=== PATIENT | male | born 1955 | race Hispanic/Latino ===

== ENCOUNTER 2024-02-16 11:38 | Emergency (ER) | payer OTHER ==
[~2024-02-16] VITALS: Ht 167.6 cm; Wt 64.4 kg
[2024-02-16] MEDS ORDERED: DIATR MEGLU/DIATRIZOATE SODIUM 30 ML BOTTLE ONE (13:13)
[2024-02-16 15:37] VITALS: BP 117/70; PULSE 95; RESP 19; O2SAT 100
== END 2024-02-16 16:01 ==
LOC: EDH 11:38
DX: Z46.59 Encounter for fitting and adjustment of other gastrointestinal appliance and device (principal)
CPT/HCPCS: 74018; Q9963

== ENCOUNTER 2024-02-19 15:43 | Inpatient (IN) | payer OTHER ==
[~2024-02-19] VITALS: Ht 157.5 cm; Wt 72.7 kg
[2024-02-19 19:14] LABS: BASOPHILS # (AUTO) 0.07 K/uL (0.00-0.20); BASOPHILS % (AUTO) 0.7 % (0.0-5.0); EOSINOPHILS # (AUTO) 0.19 K/uL (0.00-0.70); HEMATOCRIT 28.9 % (42-54); IMMATURE GRANULOCYTE ABSOLUTE 0.04 K/uL (0-1); LYMPHOCYTES # (AUTO) 1.9 K/uL (1.0-4.8); LYMPHOCYTES % (AUTO) 20.7 % (21.0-51.0); MEAN CORPUSCULAR HEMOGLOBIN 27.7 pg (27.0-33.0); MEAN CORPUSCULAR HGB CONC 34.3 g/dL (32.0-36.0); MONOCYTES % (AUTO) 10.9 % (3.0-13.0); NEUTROPHILS # (AUTO) 6.1 K/uL (1.8-7.7); NEUTROPHILS % (AUTO) 65.3 % (40.0-77.0); PLATELET COUNT (AUTO) 453 K/uL (130-400); RED BLOOD CELL COUNT(AUTO) 3.57 MIL/uL (4.50-6.20); RED CELL DISTRIBUTION WIDTH 18.8 % (11.0-15.5); WHITE BLOOD COUNT (AUTO) 9.4 K/uL (4.8-10.8)
[2024-02-19 19:24] LABS: CREATININE 0.6 mg/dL (0.5-1.3); POTASSIUM 4.2 mmol/L (3.5-5.1)
[2024-02-19 19:29] LABS: ALBUMIN 3.4 g/dL (3.5-5.0); BILIRUBIN,TOTAL 0.3 mg/dL (0.2-1.0); TOTAL PROTEIN, SERUM 7.5 g/dL (6.0-8.3)
[2024-02-19] MEDS: 0.9%NACL 1000ML 1,000 ML IV ONE (20:33)
[2024-02-19] MEDS ORDERED: IOHEXOL-350 75 ML VIAL IV ONE (20:50)
[2024-02-19 21:00] VITALS: PULSE 91; RESP 20; O2SAT 100
[2024-02-20] VITALS (10 sets, daily range): BP systolic 113–155; BP diastolic 54–83; PULSE 83–111; RESP 16–22; O2SAT 98–100
[2024-02-20] MEDS ORDERED: ONDANSETRON 4MG INJ IV PRN
[2024-02-20] MEDS ORDERED: ACETAMINOPHEN 325 MG TAB PO PRN
[2024-02-20] MEDS ORDERED: GLUCAGON 1MG KIT 1 MG ML IM PRN (00:30)
[2024-02-20] MEDS ORDERED: POTASSIUM CHLORIDE 20MEQ/100ML 100 ML IV PRN (00:30)
[2024-02-20] MEDS ORDERED: DEXTROSE 50%-WATER 50 ML DISP.SYRIN IV PRN (00:30)
[2024-02-20] MEDS ORDERED: AMLO-258 PO (00:45)
[2024-02-20] MEDS ORDERED: ENOX40DI9 SQ (00:46)
[2024-02-20] MEDS ORDERED: POLY17PO52 PO (00:47)
[2024-02-20] MEDS ORDERED: HYDR5POW MC (00:49)
[2024-02-20] MEDS ORDERED: METO5TAB2 PO (00:50)
[2024-02-20] MEDS ORDERED: LOSA50TA64 PO (00:50)
[2024-02-20] MEDS ORDERED: METO75TA PO (00:53)
[2024-02-20] MEDS ORDERED: MULT9LIQ PO (00:54)
[2024-02-20] MEDS ORDERED: SODI100037 PO (00:55)
[2024-02-20] MEDS: LACTATED RINGERS 1000ML 1,000 ML IV SCH (01:06)
[2024-02-20] MEDS: INSULIN HUMULIN R 100 UNIT/ML 3ML SQ SCH (05:32)
[2024-02-20 06:09] LABS: BASOPHILS # (AUTO) 0.06 K/uL (0.00-0.20); BASOPHILS % (AUTO) 0.5 % (0.0-5.0); EOSINOPHILS # (AUTO) 0.08 K/uL (0.00-0.70); EOSINOPHILS % (AUTO) 0.6 % (0.0-8.0); HEMATOCRIT 29.4 % (42-54); IMMATURE GRANULOCYTE ABSOLUTE 0.06 K/uL (0-1); LYMPHOCYTES # (AUTO) 1.7 K/uL (1.0-4.8); LYMPHOCYTES % (AUTO) 13.3 % (21.0-51.0); MEAN CORPUSCULAR HEMOGLOBIN 27.8 pg (27.0-33.0); MEAN CORPUSCULAR HGB CONC 33.7 g/dL (32.0-36.0); MEAN CORPUSCULAR VOLUME 82.6 fL (79-99); MONOCYTES # (AUTO) 1.3 K/uL (0.1-1.0); MONOCYTES % (AUTO) 9.6 % (3.0-13.0); NEUTROPHILS # (AUTO) 9.9 K/uL (1.8-7.7); NEUTROPHILS % (AUTO) 75.5 % (40.0-77.0); PLATELET COUNT (AUTO) 422 K/uL (130-400); RED BLOOD CELL COUNT(AUTO) 3.56 MIL/uL (4.50-6.20); RED CELL DISTRIBUTION WIDTH 18.5 % (11.0-15.5)
[2024-02-20 06:21] LABS: INR 1.07 (0.85-1.15); PROTHROMBIN TIME 11.5 SEC (9.6-11.6)
[2024-02-20 06:22] LABS: PARTIAL THROMBOPLASTIN TIME 29.7 SEC (26.3-35.5)
[2024-02-20 06:33] LABS: ALBUMIN 3.3 g/dL (3.5-5.0); BILIRUBIN,TOTAL 0.4 mg/dL (0.2-1.0); CREATININE 0.6 mg/dL (0.5-1.3); MAGNESIUM 1.6 mg/dL (1.80-2.40); POTASSIUM 4.1 mmol/L (3.5-5.1); TOTAL PROTEIN, SERUM 7.4 g/dL (6.0-8.3)
[2024-02-20] MEDS: FAMOTIDINE 20MG VIAL IV SCH (09:12)
[2024-02-20] MEDS ORDERED: NITROGLYCERIN 0.4 MG SL TAB SL PRN (20:30)
[2024-02-20] MEDS ORDERED: CLONIDINE HCL 0.1 MG TABLET PO PRN (20:30)
[2024-02-20] MEDS ORDERED: ACETAMINOPHEN 650 MG/20.3 ML UDCUP PEG PRN (20:30)
[2024-02-20] MEDS ORDERED: BISACODYL 10 MG SUPP.RECT RC PRN (20:30)
[2024-02-20] MEDS ORDERED: LACTULOSE 20 GM/30 ML UDCUP PO PRN (20:30)
[2024-02-20] MEDS: HYDRALAZINE HCL 10 MG TABLET NG SCH (21:00)
[2024-02-20] MEDS: NYSTATIN 15 GM POWDER TP SCH (21:00)
[2024-02-20] MEDS: MUPIROCIN OINTMENT 22 GM TUBE TP SCH (21:00)
[2024-02-20] MEDS: FAMOTIDINE 20MG TAB PO SCH (21:00)
[2024-02-20] MEDS: LOSARTAN 50 MG TABLET PO SCH (21:43)
[2024-02-20] MEDS: SODIUM CHLORIDE 1,000 MG TAB PO SCH (21:43)
[2024-02-20] MEDS: METOPROLOL TARTRATE 50 MG TAB NG SCH (21:43)
[2024-02-20] MEDS: ALBUTEROL 0.083% 2.5 MG/3 ML INH IH SCH (23:24)
[2024-02-21] VITALS (29 sets, daily range): BP systolic 50–161; BP diastolic 50–81; PULSE 63–101; RESP 15–20; O2SAT 96–100
[2024-02-21] MEDS: METOCLOPRAMIDE 10MG/10ML UDCUP NG SCH (03:29)
[2024-02-21 06:27] LABS: HEMATOCRIT 27.4 % (42-54); MEAN CORPUSCULAR HEMOGLOBIN 27.7 pg (27.0-33.0); MEAN CORPUSCULAR HGB CONC 32.5 g/dL (32.0-36.0); MEAN CORPUSCULAR VOLUME 85.4 fL (79-99); RED BLOOD CELL COUNT(AUTO) 3.21 MIL/uL (4.50-6.20); RED CELL DISTRIBUTION WIDTH 18.2 % (11.0-15.5)
[2024-02-21 06:44] LABS: CREATININE 0.6 mg/dL (0.5-1.3); MAGNESIUM 1.4 mg/dL (1.80-2.40); POTASSIUM 3.8 mmol/L (3.5-5.1)
[2024-02-21] MEDS: MAGNESIUM 2GM PREMIX 50ML 50 ML IV PRN (06:51)
[2024-02-21] MEDS: AMLODIPINE 5 MG TAB PO SCH (09:00)
[2024-02-21] MEDS: POLYETHYLENE GLYCOL 3350 17 GM POWD.PACK PO SCH (09:00)
[2024-02-21] MEDS: ENOXAPARIN SODIUM 40 MG/0.4 ML SYRINGE SQ SCH (09:00)
[2024-02-21] MEDS: BACITRACIN 1 EACH PACKET TP ONE (09:00)
[2024-02-21] MEDS: MULTIVITAMIN WITH MINERALS TABLET PO SCH (09:00)
[2024-02-21] MEDS ORDERED: PROPOFOL 10 MG/ML 20ML VIAL IV ONE (12:41)
[2024-02-21] MEDS ORDERED: LIDOCAINE PF 100MG/5ML (2%) SYRINGE 5ML ONE (12:42)
[2024-02-21] MEDS ORDERED: CEFAZOLIN SODIUM 1 GM VIAL ONE (12:44)
[2024-02-21] MEDS: LABETALOL 20MG SYG IV PRN (16:04)
[2024-02-21] MEDS: ACETAMINOPHEN 325 MG TAB PO PRN (20:28)
[2024-02-22] VITALS (13 sets, daily range): BP systolic 104–165; BP diastolic 56–97; PULSE 68–89; RESP 18–20; O2SAT 97–99
[2024-02-22] MEDS: PANTOPRAZOLE 40 MG TAB DR PO SCH (10:59)
[2024-02-23] VITALS (10 sets, daily range): BP systolic 116–157; BP diastolic 59–66; PULSE 64–85; RESP 18–20; O2SAT 96–100
[2024-02-23 05:13] LABS: HEMATOCRIT 24.9 % (42-54); MEAN CORPUSCULAR HEMOGLOBIN 27.7 pg (27.0-33.0); MEAN CORPUSCULAR HGB CONC 33.3 g/dL (32.0-36.0); RED CELL DISTRIBUTION WIDTH 17.8 % (11.0-15.5); WHITE BLOOD COUNT (AUTO) 9.3 K/uL (4.8-10.8)
[2024-02-23 05:19] LABS: CREATININE 0.6 mg/dL (0.5-1.3); MAGNESIUM 1.4 mg/dL (1.80-2.40); POTASSIUM 3.2 mmol/L (3.5-5.1)
[2024-02-23] MEDS: POTASSIUM CHLORIDE 10% ELIXIR 20 MEQ/15 ML UDCUP PO PRN (06:24)
[2024-02-23] MEDS: ZOSYN 3.375GM +NS 50ML IV SCH (15:18)
== END 2024-02-23 17:27 | DRG 919 ==
LOC: EDH 15:43 → EDHIP 23:49 → OBSVTOIN 23:49 → 3CH 02-20 00:35
PROVIDERS: ADMIT Hospitalist; ATTEND Hospitalist
PROC: 0DB68ZX Excision of Stomach, Via Natural or Artificial Opening Endoscopic, Diagnostic (ICD-10-PCS; principal; 2024-02-21)
PROC: 0D20XUZ Change Feeding Device in Upper Intestinal Tract, External Approach (ICD-10-PCS; 2024-02-21)
DX: T85.528A Displacement of other gastrointestinal prosthetic devices, implants and grafts, initial encounter (principal); J18.9 Pneumonia, unspecified organism; J96.00 Acute respiratory failure, unspecified whether with hypoxia or hypercapnia; R53.2 Functional quadriplegia; K56.7 Ileus, unspecified; E87.1 Hypo-osmolality and hyponatremia; E46 Unspecified protein-calorie malnutrition; D64.9 Anemia, unspecified; E11.9 Type 2 diabetes mellitus without complications; I10 Essential (primary) hypertension; Z86.73 Personal history of transient ischemic attack (TIA), and cerebral infarction without residual deficits; Z68.29 Body mass index [BMI] 29.0-29.9, adult; Z87.891 Personal history of nicotine dependence; Z93.0 Tracheostomy status; Y83.3 Surgical operation with formation of external stoma as the cause of abnormal reaction of the patient, or of later complication, without mention of misadventure at the time of the procedure; Y73.2 Prosthetic and other implants, materials and accessory gastroenterology and urology devices associated with adverse incidents
CPT/HCPCS: 36415; 43239; 43246; 73030; 74018; 74177; 80048; 80053; 82948; 83735; 85025; 85027; 85610; 85730; 87071; 87086; 87186; 87205; 88305; 88312; 94640; 94664; G0378; J0690; J1650; J2001; J2543; J2704; J3475; J3490; J7030; Q9967; A4222; A4223; A4600